=== PATIENT | female | born 2005 | race Two or more races ===

== ENCOUNTER 2025-08-21 02:24 | Emergency (ER) | payer SELFPAY ==
[~2025-08-21] VITALS: Ht 167.6 cm; Wt 61.2 kg
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
[2025-08-21 04:25] LABS: Hematocrit 41.7 % (36.0-46.0); Hemoglobin 14.3 g/dL (12.2-16.2); Mean Corpuscular Hemoglobin 29.6 pg (28.0-32.0); Mean Corpuscular Volume 86.8 fL (80.0-100.0); Nucleated Red Blood Cells % 0.0 %
[2025-08-21 04:37] LABS: Chloride 102 mmol/L (98-107); Potassium 3.7 mmol/L (3.5-5.1); Sodium 138 mmol/L (136-145)
[2025-08-21 04:41] LABS: Calcium 9.7 mg/dL (8.7-10.4)
[2025-08-21 04:45] LABS: Glucose 99 mg/dL (74-106)
[2025-08-21 04:46] LABS: BUN/Creatinine Ratio 9.1 (10.0-20.0)
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
[2025-08-21 04:48] LABS: Bilirubin, Total 0.6 mg/dL (0.2-1.0); Creatine Kinase IFCC 85 U/L (34-145)
[2025-08-21 04:54] LABS: Alanine Aminotransferase 72 U/L (7-40); Albumin 4.8 g/dL (3.2-4.8); Alkaline Phosphatase 118 U/L (46-116); Blood Urea Nitrogen 6 mg/dL (9-23); Total Protein 8.8 g/dL (5.7-8.2)
[2025-08-21 05:18] LABS: Anion Gap 10 (5-15); Carbon Dioxide 26 mmol/L (20-31)
[2025-08-21 05:35] LABS: Amphetamine Screen, Urine Neg (NEGATIVE); Barbiturate Scree,Urine Neg (NEGATIVE); Benzodiazephine Screen, Urine Neg (NEGATIVE); Cannabinoid Screen, Urine Neg (NEGATIVE); Cocaine Screen, Urine Neg (NEGATIVE); Opiate Scree,Urine Neg (NEGATIVE); Phencyclidine Screen, Urine Neg (NEGATIVE)
[2025-08-21 06:20] VITALS: BP 124/68; PULSE 70; RESP 17; TEMP 98.1; O2SAT 99
[2025-08-21 06:44] LABS: Urine Protein, UAD TRACE (Negative)
== END 2025-08-21 07:13 | disposition home or self-care (01) ==
LOC: ER 02:24
DX: S39.91XA Unspecified injury of abdomen, initial encounter (principal); R10.9 Unspecified abdominal pain; Z79.899 Other long term (current) drug therapy; V43.52XA Car driver injured in collision with other type car in traffic accident, initial encounter; Y93.89 Activity, other specified; Y92.410 Unspecified street and highway as the place of occurrence of the external cause; Y99.8 Other external cause status
CPT/HCPCS: 36415; 71045; 74176; 80053; 80307; 81003; 81025; 82550; 83690; 84484; 85025